=== PATIENT | male | born 1985 | race Caucasian/White ===

== ENCOUNTER 2019-05-04 18:09 | Emergency (ER) | payer BC ==
--- NOTE | 2019-05-04 18:40 | EDM.PDOC ---
ED HPI GENERAL MEDICAL PROBLEM - General Chief Complaint: Laceration Stated Complaint: EYE LAC Time Seen by Provider: 05/04/19 18:33 - History of Present Illness INITIAL COMMENTS - FREE TEXT/NARRATIVE: Patient was playing basketball and got elbowed in the left side of the face just outside the eye. He is uncertain of his tetanus status. He has a pretty good stellate laceration , he has good vision is able to track his eye muscles without any difficulty. Patient does not have any vision troubles he did not get knocked out did not feel dazed her stunned after this happened no other associated injuries. - Related Data Allergies Allergy/AdvReac Type Severity Reaction Status Date / Time No Known Allergies Allergy Verified 05/04/19 18:21 Home Meds: Home Meds . [No Known Home Meds] 05/04/19 [History] Past Medical History Neurological History: Reports: Migraines Social & Family History - Tobacco Use Smoking Status *Q: Never Smoker Second Hand Smoke Exposure: No - Caffeine Use Caffeine Use: Reports: None - Recreational Drug Use Recreational Drug Use: No ED ROS GENERAL - Review of Systems Review Of Systems: See Below Constitutional: Reports: No Symptoms HEENT: Reports: No Symptoms Respiratory: Reports: No Symptoms Cardiovascular: Reports: No Symptoms GI/Abdominal: Reports: No Symptoms : Reports: No Symptoms Neurological: Reports: No Symptoms, Confusion, Headache ED EXAM, SKIN/RASH Exam: See Below Exam Limited By: No Limitations General Appearance: Alert, No Apparent Distress Eye Exam: Bilateral Eye: EOMI, Normal Inspection Ears: Normal External Exam, Normal Canal, Hearing Grossly Normal, Normal TMs Nose: Normal Inspection, Normal Mucosa, No Blood Throat/Mouth: Normal Inspection, Normal Lips, Normal Teeth, Normal Gums, Normal Oropharynx, Normal Voice, No Airway Compromise Head: Other (Stellate laceration lateral to his left eye not involving the eye.) Neck: Normal Inspection, Supple, Non-Tender Respiratory/Chest: No Respiratory Distress, Lungs Clear, Normal Breath Sounds Cardiovascular: Regular Rate, Rhythm, No Edema, No Murmur Skin: Other (Examination laceration shows a stellate laceration with 5 extensions total measurement 2 and 1/2 cm) ED SKIN PROCEDURES - Laceration/Wound Repair Left Face Lac/Wound length In cm: 2.5 Appearance: Subcutaneous, Stellate Distal NVT: Neuro & Vascular Intact Anesthetic Type: Local Local Anesthesia - Lidocaine (Xylocaine): 1% Plain Local Anesthetic Volume: 2cc Skin Prep: Saline Exploration/Debridement/Repair: Wound Explored, In a Bloodless Field, Explored to Base Closed with: Sutures Suture Size: other (5.0) # of Sutures: 6 Suture Type: Nylon Drain Placement: No Tetanus Status Addressed: Other (This is updated) Complications: No Course - Vital Signs Last Recorded V/S: Last Vital Signs Temp 36.4 C 05/04/19 18:19 Pulse 100 05/04/19 18:19 Resp 16 05/04/19 18:19 BP 158/70 H 05/04/19 18:19 Pulse Ox 95 05/04/19 18:19 - Orders/Labs/Meds Orders: Active Orders 24 hr Category Date Time Status Vaccines to be Administered [RC] PER UNIT ROUTINE Care 05/04/19 18:49 Active Meds: Medications Discontinued Medications Generic Name Dose Route Start Last Admin Trade Name Freq PRN Reason Stop Dose Admin Diphtheria/Tetanus/Acell Pertussis 0.5 ml 05/04/19 18:48 05/04/19 18:45 Adacel IM 05/04/19 18:49 0.5 ml .ONCE ONE Administration Lidocaine HCl 5 ml 05/04/19 18:40 05/04/19 18:48 Xylocaine-Mpf 1% INJECT 05/04/19 18:41 Not Given ONETIME ONE Lidocaine HCl 20 ml 05/04/19 18:47 Xylocaine 1% INJECT 05/04/19 18:48 ONETIME ONE Lidocaine HCl Confirm 05/04/19 18:51 05/04/19 19:02 Xylocaine 1% Administered 05/04/19 18:52 Not Given Dose 10 ml .ROUTE .STK-MED ONE Lidocaine HCl 10 ml 05/04/19 18:52 05/04/19 18:40 Xylocaine 1% INJECT 05/04/19 18:53 10 ml ONETIME ONE Administration Departure - Departure Time of Disposition: 19:24 Disposition: Home, Self-Care 01 Clinical Impression: Facial laceration - Discharge Information Instructions: Facial Laceration, [id number] Referrals: PCP,Not In Area [Primary Care Provider] - Forms: ED Department Discharge Additional Instructions: Return to emergency room if any questions problems worsening symptoms. Follow-up in the Hospital clinic in 6 or 7 days for suture removal. [phone] The area clean and dry as we discussed only exposure to water very briefly been gently dab it dry. - My Orders Last 24 Hours: My Active Orders 05/04/19 18:49 Vaccines to be Administered [RC] PER UNIT ROUTINE - Assessment/Plan Last 24 Hours: My Active Orders 05/04/19 18:49 Vaccines to be Administered [RC] PER UNIT ROUTINE
[2019-05-04] MEDS ORDERED: Lidocaine 1% 20 ML MDV INJECT ONE (18:47)
[2019-05-04] MEDS ORDERED: Diphtheria,Pertussis(Acell),Tetanus Vaccine 0.5 ML Syringe IM ONE (18:48)
[2019-05-04] MEDS ORDERED: Lidocaine 1% 10 ML MDV ONE (18:51)
[2019-05-04] MEDS ORDERED: Lidocaine 1% 10 ML MDV INJECT ONE (18:52)
== END 2019-05-04 19:32 | disposition home or self-care (01) ==
LOC: JD.ED 18:09
DX: S01.81XA Laceration without foreign body of other part of head, initial encounter (principal); Z23 Encounter for immunization; W50.0XXA Accidental hit or strike by another person, initial encounter; Y93.67 Activity, basketball
CPT/HCPCS: 12011; 90471; 90700; 99282; J2001